=== PATIENT | female | born 1985 | race African-American/Black ===

== ENCOUNTER 2021-08-18 15:10 | Emergency (ER) | payer OTHER ==
[2021-08-18] MEDS ORDERED: Ibuprofen 200 MG TAB ONE (17:54)
[2021-08-18] MEDS ORDERED: Acetaminophen 500 MG TAB ONE (17:54)
== END 2021-08-18 18:07 | disposition home or self-care (01) ==
LOC: CSHERS 15:10
DX: B34.9 Viral infection, unspecified (principal)
CPT/HCPCS: 87804; 99283

== ENCOUNTER 2022-11-23 11:14 | Emergency (ER) | payer OTHER ==
[2022-11-23] MEDS ORDERED: Ibuprofen 200 MG TAB ONE (13:30)
[2022-11-23 13:48] LABS: SARS-CoV-2 NAA Rapid Test Not Detected (NotDetected)
== END 2022-11-23 15:08 | disposition home or self-care (01) ==
LOC: CSHERS 11:14
DX: J02.9 Acute pharyngitis, unspecified (principal); I10 Essential (primary) hypertension; Z20.822 Contact with and (suspected) exposure to COVID-19
CPT/HCPCS: 71045; 84484; 87081; 87430; 93005

== ENCOUNTER 2023-07-31 09:10 | Emergency (ER) | payer OTHER ==
[2023-07-31 09:59] LABS: Bilirubin Neg (Negative); Blood, Urine 150 (Negative); Glucose, Urine (Dipstick) Normal (Negative); Ketone, Urine Negative (Negative); Leukocyte 100 (Negative); Nitrite Positive (Negative); Protein, Urine (Dipstick) 30 mg/dl (Neg-Trace); Specific Gravity, Urine 1.015 (1.005-1.030); Urobilinogen Normal mg/dL (Less than 2)
[2023-07-31 10:10] LABS: Clarity Clear (Clear)
[2023-07-31 10:12] LABS: Bacteria/HPF 3+ HPF (None Seen); CAUTI Indications for Culture Dysuria,urgency,freq; Pregnancy Test - Urine (BHCG) Negative (Negative); RBC/HPF 21-50 HPF (0-3); Specific Gravity 1.015 (1.002-1.036); Squamous Epithelial 0-3 HPF (0-3); WBC/HPF 21-50 HPF (0-3)
[2023-07-31 10:13] LABS: Pregu Control Background? CLEAR/WHITE (CLR/WHITE); Pregu Control Bar Appear? YES (CONTROL BAR); Urine Culture Reflex Yes Yes
== END 2023-07-31 11:22 | disposition home or self-care (01) ==
LOC: CSHERS 09:10
DX: N39.0 Urinary tract infection, site not specified (principal); M54.50 Low back pain, unspecified
CPT/HCPCS: 81001; 81025; 87077; 87086; 87186; 99283

== ENCOUNTER 2024-07-04 11:25 | Emergency (ER) | payer SELFPAY ==
[2024-07-04 12:12] LABS: Bilirubin Neg (Negative); Blood, Urine 250 (Negative); Clarity Clear (Clear); Glucose, Urine (Dipstick) Normal (Negative); Ketone, Urine Negative (Negative); Leukocyte 25 (Negative); Nitrite Positive (Negative); Protein, Urine (Dipstick) 30 mg/dl (Neg-Trace); Specific Gravity, Urine 1.015 (1.005-1.030)
[2024-07-04 12:13] LABS: Pregnancy Test - Urine (BHCG) Negative (Negative); Pregu Control Background? CLEAR/WHITE (CLR/WHITE); Pregu Control Bar Appear? YES (CONTROL BAR); Specific Gravity 1.015 (1.002-1.036)
[2024-07-04 12:22] LABS: Bacteria/HPF 4+ HPF (None Seen); CAUTI Indications for Culture Pelvic or flank pain; RBC/HPF 0-3 HPF (0-3); Squamous Epithelial 0-3 HPF (0-3); Urine Culture Reflex No No
[2024-07-04] MEDS ORDERED: Nitrofurantoin Monohyd/M-Cryst 100 MG CAP PO SCH (12:45)
== END 2024-07-04 13:07 | disposition home or self-care (01) ==
LOC: CSHERS 11:25
DX: N39.0 Urinary tract infection, site not specified (principal)
CPT/HCPCS: 81001; 81025; 99284